=== PATIENT | female | born 1975 | race Caucasian/White ===

== ENCOUNTER 2017-06-26 08:00 | Inpatient (IN) | payer MEDICAID, OTHER ==
--- NOTE | 2017-06-26 09:07 | PD ---
HPI Chief Complaint pelvic pressure and contractions Travel History International Travel<30 Days: No Contact w/Intl Traveler<30Days: No History of Present Illness HPI 41 yo at 40/3 based second trimester us presents to OB triage due to pelvic pressure that started this morning. Pt stated she felt gush of fluid ( blood streaked) around 4am. Endorses contractions and movement. Pt stated last meal she had was at 7pm yesterday 06/25. Of note: there is a discrepancy on pt's LACHELLE because first US during this was done 03/20/17. Based on LMP: 09/24/16 LACHELLE: 07/02/17 and pt is 39/1 weeks gestation based LMP. Weeks Gestation: 40 Para: 2 : 5 : 1 History Past Medical History Medical History: Denies Significant Hx Obstetric History Obstetric History - 1 miscarriage - 1 ectopic 4 yrs ago - C/S x2 Past Surgical History Narrative Surgical -C/S x2 - L fallopian tube removal due to ectopic Family History Family History: Negative Social History Alcohol Use: No Tobacco Use: No Substance Abuse: No Allergies-Medications (Allergen,Severity, Reaction): Coded Allergies: No Known Allergies (Unverified , 06/26/17) Review of Systems Except as stated in HPI: all other systems reviewed are Neg Physical Exam Narrative GENERAL: Well-nourished, well-developed patient. SKIN: Warm and dry. HEAD: Normocephalic and atraumatic. EYES: No scleral icterus. No injection or drainage. ENT: No nasal drainage noted. Mucous membranes pink. Airway patent. NECK: Supple, trachea midline. No JVD. CARDIOVASCULAR: Regular rate and rhythm without murmurs, gallops, or rubs. RESPIRATORY: Breath sounds equal bilaterally. No accessory muscle use. BREASTS: Bilateral exam showed no masses , no retractions, no nipple discharge. ABDOMEN/GI: Abdomen soft, non-tender, bowel sounds present, no rebound, no guarding GENITOURINARY: External Genitalia: intact and normal in appearance Dilatation: 0-1cm Effacement: 50% Station: -3 Membranes: intact Uterine Contractions: present, every 3-6mins FHT's: Category: 1 Baseline: 130 Reactive: positive Variability: moderate Decels: none EXTREMITIES: No cyanosis or edema. BACK: Nontender without obvious deformity. No CVA tenderness. NEUROLOGICAL: Awake and alert. Motor and sensory grossly within normal limits. Five out of 5 muscle strength in all muscle groups. Normal speech. Data Data Vital Signs Reviewed: Yes MDM Medical Record Reviewed: Yes Plan 41 yo at 40/3 based on second trimester us presented to OB triage due to increased pelvic pressure and contractions. Plan to admit pt to be delivered via C/S today. 1.IUP at 40/3 -Continue routine OB Care -NST, reassuring -FHT, cat. 1 -amnisure neg but pt gestational age and frequent contractions and pelvic pressure 2. C- section -Pt VS are WNL, boubacar about every 3 mins with increased pelvic pressure -plan to deliver pt via today -Pt NPO since 7pm last night -ancef 2g will be given pre-op dw Dr. Hendrickson Diagnosis Diagnosis: Primary Impression: 40 weeks gestation of Ruled Out: 39 weeks gestation of Melquiades Cordero MD R1 Jun 26, 2017 09:07
[2017-06-26] MEDS ORDERED: LACTATED RINGER'S 1000 ML INJ 1,000 ML IV ONE ×2 (10:16→12:00)
[2017-06-26] MEDS ORDERED: LACTATED RINGER'S 1000 ML INJ 1,000 ML IV SCH (10:46)
--- NOTE | 2017-06-26 10:58 | HHI.HP ---
History & Physical H&P HPI HPI Chief Complaint pelvic pressure and contractions Travel History International Travel<30 Days: No Contact w/Intl Traveler<30Days: No History of Present Illness HPI 41 yo at 40/3 based second trimester us presents to OB triage due to pelvic pressure that started this morning. Pt stated she felt gush of fluid ( blood streaked) around 4am. Endorses contractions and movement. Pt stated last meal she had was at 7pm yesterday 06/25. Of note: there is a discrepancy on pt's LACEHLLE because first US during this was done 03/20/17. Based on LMP: 09/24/16 LACHELLE: 07/02/17 and pt is 39/1 weeks gestation based LMP. Weeks Gestation: 40 Para: 2 : 5 : 1 History (Limited) History Past Medical History Medical History: Denies Significant Hx Obstetric History Obstetric History - 1 miscarriage - 1 ectopic 4 yrs ago - C/S x2 Past Surgical History Narrative Surgical -C/S x2 - L fallopian tube removal due to ectopic Family History Family History: Negative Social History Alcohol Use: No Tobacco Use: No Substance Abuse: No Allergies-Medications Allergies-Medications (Allergen,Severity, Reaction): Coded Allergies: No Known Allergies (Unverified , 06/26/17) ROS Review of Systems Except as stated in HPI: all other systems reviewed are Neg Physical Exam Physical Exam Narrative GENERAL: Well-nourished, well-developed patient. SKIN: Warm and dry. HEAD: Normocephalic and atraumatic. EYES: No scleral icterus. No injection or drainage. ENT: No nasal drainage noted. Mucous membranes pink. Airway patent. NECK: Supple, trachea midline. No JVD. CARDIOVASCULAR: Regular rate and rhythm without murmurs, gallops, or rubs. RESPIRATORY: Breath sounds equal bilaterally. No accessory muscle use. BREASTS: Bilateral exam showed no masses , no retractions, no nipple discharge. ABDOMEN/GI: Abdomen soft, non-tender, bowel sounds present, no rebound, no guarding GENITOURINARY: External Genitalia: intact and normal in appearance Dilatation: 0-1cm Effacement: 50% Station: -3 Membranes: intact Uterine Contractions: present, every 3-6mins FHT's: Category: 1 Baseline: 130 Reactive: positive Variability: moderate Decels: none EXTREMITIES: No cyanosis or edema. BACK: Nontender without obvious deformity. No CVA tenderness. NEUROLOGICAL: Awake and alert. Motor and sensory grossly within normal limits. Five out of 5 muscle strength in all muscle groups. Normal speech. Data Data Data Vital Signs Reviewed: Yes MDM MDM Medical Record Reviewed: Yes Plan 41 yo at 40/3 based on second trimester us presented to OB triage due to increased pelvic pressure and contractions. Plan to admit pt to be delivered via C/S today. 1.IUP at 40/3 -Continue routine OB Care -NST, reassuring -FHT, cat. 1 -amnisure neg but pt gestational age and frequent contractions and pelvic pressure 2. C- section -Pt VS are WNL, boubacar about every 3 mins with increased pelvic pressure -plan to deliver pt via today -Pt NPO since 7pm last night -ancef 2g will be given pre-op dw Dr. Hendrickson Diagnosis Diagnosis: Primary Impression: 40 weeks gestation of Ruled Out: 39 weeks gestation of Melquiades Cordero MD R1 Jun 26, 2017 10:58
[2017-06-26] MEDS ORDERED: ceFAZolin 2 GM PREMIX 50 ML IV SCH (11:30)
[2017-06-26] MEDS ORDERED: MORPHINE SULFATE PF 5 MG/10 ML VIAL EPIDURAL ONE (12:00)
[2017-06-26] MEDS ORDERED: OXYTOCIN 10 UNIT/ML AMP IV ONE (12:00)
[2017-06-26] MEDS ORDERED: ePHEDrine/NS 25 MG/5 ML SYR IV ONE (12:00)
[2017-06-26] MEDS ORDERED: ONDANSETRON HCL 4 MG/2 ML VIAL IV PUSH ONE (12:00)
[2017-06-26] MEDS ORDERED: DEXAMETHASONE SOD PHOS 4 MG/ML VIAL IV ONE (12:00)
[2017-06-26] MEDS ORDERED: CITRIC ACID-SODIUM CITRATE LIQ 30 ML UDC PO SCH (12:00)
[2017-06-26 12:15] LABS: AUTOMATED NEUTROPHIL # 6.8 TH/MM3 (1.8-7.7); BASOPHIL % 0.4 % (0.0-2.0); EOSINOPHIL # 0.1 TH/MM3 (0-0.4); EOSINOPHIL % 0.8 % (0.0-4.0); HEMATOCRIT 34.1 % (35.0-46.0); HEMO FLAGS DIFF FINAL; LYMPH % 20.1 % (9.0-44.0); LYMPHOCYTE # 1.9 TH/MM3 (1.0-4.8); MEAN CELL VOLUME 75.2 FL (80.0-100.0); MEAN CORPUSCULAR HEMOGLOBIN 24.4 PG (27.0-34.0); MEAN CORPUSCULAR HGB CONC 32.5 % (32.0-36.0); MONO % 5.3 % (0.0-8.0); NEUT % 73.4 % (16.0-70.0); PLATELET COUNT 287 TH/MM3 (150-450); RED BLOOD COUNT 4.54 MIL/MM3 (4.00-5.30); RED CELL DISTRIBUTION WIDTH 16.7 % (11.6-17.2); WHITE BLOOD COUNT 9.3 TH/MM3 (4.0-11.0)
[2017-06-26 12:27] LABS: BACTERIA, URINE MOD /hpf; BLOOD, URINE SMALL (NEG); COMMENT (UR) CATH-CULTURE IND; CULTURE IF INDICATED CATH CULTURE IND; GLUCOSE,URINE TRACE mg/dL (NEG); KETONE, URINE NEG (NEG); MUCUS URINE FEW /lpf (OCC); NITRITE,URINE NEG (NEG); SQUAMOUS EPITHELIAL CELL URINE 2 /hpf (0-5); URINE COLOR YELLOW (YELLW/STRAW)
[2017-06-26] MEDS ORDERED: ONDANSETRON HCL 4 MG/2 ML VIAL IV PUSH PRN (15:15)
[2017-06-26] MEDS ORDERED: ZOLPIDEM TARTRATE 5 MG TAB PO PRN (15:15)
[2017-06-26] MEDS ORDERED: SODIUM CHLORIDE 0.9% FLUSH 10 ML FLUSH IV FLUSH PRN (15:15)
[2017-06-26] MEDS ORDERED: ACETAMINOPHEN 325 MG TAB PO PRN (15:15)
[2017-06-26] MEDS ORDERED: OXYTOCIN 30 UNITS-500ML PREMIX 500 ML IV ONE (15:15)
[2017-06-26] MEDS ORDERED: OXYTOCIN 30 UNITS-500ML PREMIX 500 ML ONE (16:54)
[2017-06-26 17:55] LABS: HEMATOCRIT 32.9 % (35.0-46.0); REVIEW FLAG FINAL
--- NOTE | 2017-06-26 19:15 | MP ---
cc: ELVIN HENDRICKSON MD DATE OF SURGERY 06/26/17 PREOPERATIVE DIAGNOSIS 1. Term previous caesarean section and early labor for repeat caesarean section. 2. Desires sterilization POSTOPERATIVE DIAGNOSIS 1. Term previous caesarean section and early labor for repeat caesarean section, macrosomia. 2. Desires sterilization, left tubal ligation done. OPERATION Repeat low transverse caesarean section, left tubal ligation. SURGEON Moises Hendrickson MD CLAM SHOVEL OPERATOR Dr. Gonzalez, [facility]. ANESTHESIA Spinal. PROCEDURE IN DETAIL The patient is a 41 year old , G5, P2 at 40 1/2 weeks who has a previous caesarean section boubacar this morning with pain. Cervix is 1 cm. The patient desires repeat caesarean section and left tubal ligation. She had a right tube removed due to ectopic in the past. The patient was taken to the operating room, placed in supine position on the operating room table. Adequate spinal anesthesia was administered. She was prepped and draped for abdominal surgery. A previous Pfannenstiel incision was excised out and cast away. The incision was carried to the fascia sharply and the fascia dissected laterally and then off the rectus muscle. The peritoneal cavity was entered sharply at that time. The incision was extended superior and inferiorly sharply. The bladder blade was used to hold the lower edge of incision and the vesiperitoneum was __ off the lower uterine segment and placed In the bladder blade. A transverse hysterotomy was made and extended bluntly bilaterally. Clear fluid noted at that time. A male was delivered at 2:27 p.m. Apgars 9 and 9. Weight 4870 grams, 10 lbs 12 oz. There were no complications to delivery. Cord blood obtained. Placenta manually extracted. Baby handed to awaiting nursery staff. The hysterotomy closed in running layer of 0 chromic followed by imbricating suture of same. Hemostasis was achieved. The left fallopian tube was isolated out and elevated. A hemostat passed through the mesosalpinx. Two free ties pulled through that window in the mesosalpinx and the tube was tied before and after. Intervening segment cut. This was sent to pathology. The right tube was absent. The uterus was elevated. Blunt dissection to cul-de-sac and gutters. Uterus was replaced in peritoneal cavity. The parieto-peritoneum was closed in running layer of 2-0 Vicryl. The muscle approximated with two stick ties of chromic. The fascia closed in a running layer of 0 Vicryl. The subcutaneous tissue reapproximated using 3-0 plain catgut suture in a running fashion. Skin closed with running subcuticular stitch of 3-0 Monocryl. The patient has a very large pannus and the incision would be under this pannus so we used the optifoam dressing that stays on a week and was placed over the incision. This will be removed in a week, sooner if it gets saturated. The estimated blood loss was 500 mL. There were no complications. Sponge count correct times two. The patient was taken to recovery in stable condition. MD LINDSEY Maradiaga/ /3:38 PM /6:52 PM
[2017-06-26] MEDS: SODIUM CHLORIDE 0.9% FLUSH 10 ML FLUSH IV FLUSH SCH (21:00)
[2017-06-27] MEDS: LACTATED RINGER'S 1000 ML INJ 1,000 ML IV SCH ×2 (00:14→06:15)
[2017-06-27] MEDS ORDERED: OXYTOCIN 30 UNITS-500ML PREMIX 500 ML IV PRN (01:15)
[2017-06-27] MEDS: SIMETHICONE 80 MG CHEWABLE TAB PO PRN ×2 (02:48→14:13)
[2017-06-27 06:57] LABS: AUTOMATED NEUTROPHIL # 9.4 TH/MM3 (1.8-7.7); BASOPHIL % 0.1 % (0.0-2.0); HEMATOCRIT 29.1 % (35.0-46.0); HEMO FLAGS DIFF FINAL; LYMPH % 11.3 % (9.0-44.0); LYMPHOCYTE # 1.3 TH/MM3 (1.0-4.8); MEAN CELL VOLUME 75.9 FL (80.0-100.0); MEAN CORPUSCULAR HEMOGLOBIN 24.3 PG (27.0-34.0); NEUT % 82.6 % (16.0-70.0); PLATELET COUNT 266 TH/MM3 (150-450); RED BLOOD COUNT 3.84 MIL/MM3 (4.00-5.30); RED CELL DISTRIBUTION WIDTH 16.8 % (11.6-17.2); WHITE BLOOD COUNT 11.4 TH/MM3 (4.0-11.0)
--- NOTE | 2017-06-27 08:11 | HHI.OB ---
Subjective Post Operative Day: 1 Remarks Pt seen and examined this morning. Postoperative day # 1 AFVSS overnight. Incision and draining. Decreased lochia. Denies dysuria. No breast tenderness. She is feeding the baby via breast and bottle. Appetite good. No nausea or vomiting. Patient has not yet had a bowel movement or passed bowel gas. Ambulating well. Denies calf pain or shortness of breath. Otherwise, she is doing well this morning and has no other concerns. Objective Result Diagram: 06/27/17 0612 Objective Remarks GENERAL: Well-nourished, well-developed patient. CARDIOVASCULAR: Regular rate and rhythm without murmurs, gallops, or rubs. RESPIRATORY: Breath sounds equal bilaterally. No accessory muscle use. ABDOMEN/GI: Abdomen soft, non-tender, bowel sounds present. Incision: Clean, dry and intact. Fundus: Firm, non-tender at umbilicus. GENITOURINARY: Light to moderate bleeding. EXTREMITIES: No cyanosis or edema, non-tender, without signs of DVT. Medications and IVs Current Medications Medications (Trade) Dose Ordered Sig/Prakash Route Start Time Stop Time Status Last Admin Cefazolin Sodium/ Dextrose 50 ml @ 100 mls/hr LETTUCE CUTTER IV 06/26/17 11:30 06/30/17 11:29 06/26/17 13:11 (Bicitra Liq) 30 ml LETTUCE CUTTER PO 06/26/17 12:00 06/30/17 11:59 06/26/17 13:10 Lactated Ringer's 1,000 ml @ 100 mls/hr Q10H IV 06/26/17 20:15 06/27/17 16:14 06/27/17 00:14 Oxytocin 500 ml @ 100 mls/hr UNSCH X1 PRN IV 06/27/17 01:15 06/28/17 01:14 (NS Flush) 2 ml BID IV FLUSH 06/26/17 21:00 (NS Flush) 2 ml UNSCH PRN IV FLUSH 06/26/17 15:15 (Mylicon Chew) 80 mg QID PRN PO 06/26/17 15:15 06/27/17 02:48 (Tylenol) 650 mg Q6H PRN PO 06/26/17 15:15 (Motrin) 600 mg Q6H PRN PO 06/26/17 15:15 (Percocet 5-325 Mg) 1 tab Q4H PRN PO 06/26/17 15:15 (Percocet 5-325 Mg) 2 tab Q4H PRN PO 06/26/17 15:15 (Cindy-Colace) 2 tab Q12H PRN PO 06/26/17 15:15 (Ambien) 5 mg HS PRN PO 06/26/17 15:15 (M-M-R Ii Inj) 0.5 ml ONCE ONCE SQ 06/27/17 16:00 06/27/17 16:01 (Boostrix Inj) 0.5 ml ONCE ONCE IM 06/27/17 16:00 06/27/17 16:01 (Zofran Inj) 4 mg Q6H PRN IV PUSH 06/26/17 15:15 06/26/17 23:55 Cefazolin Sodium 1000 mg/Sodium Chloride 100 ml @ 200 mls/hr Q8H IV 06/27/17 00:30 06/27/17 08:59 06/27/17 00:14 Assessment/Plan Problem List: (1) delivery delivered ICD Codes: O82 - Encounter for delivery without indication Status: Acute Assessment and Plan 41 y/o female who is postoperative day # 1 s/p . -Continue routine care. -Percocet and Motrin PRN pain. -Encouraged OOB. Advised pelvic rest for 6 wks. Will need follow-up appointment in 1 week for incision check. -Re: ctrl, she would like to discuss her options at her follow-up appointment. -Anticipate discharge in 1-2 days. gavin Hendrickson MD Discharge Planning 1-2 days Mario Zuniga MD R2 Jun 27, 2017 08:11
[2017-06-27] MEDS: SODIUM CHLORIDE 0.9% FLUSH 10 ML FLUSH IV FLUSH SCH ×3 (09:00→20:54)
[2017-06-27 11:51] VITALS: BP 114/66; PULSE 90; RESP 18; TEMP 98.8
[2017-06-27] MEDS: IBUPROFEN 600 MG TAB PO PRN ×2 (14:13→20:50)
[2017-06-27] MEDS: oxyCODONE/ACETAMINOPHEN 5 MG/325 MG TAB PO PRN ×2 (14:13→18:53)
[2017-06-27] MEDS ORDERED: MEASLES, MUMPS, RUBELLA VACCINE 0.5 ML VIAL SQ ONE (16:00)
[2017-06-27] MEDS ORDERED: DIPHTH/TETANUS/ACEL PERTUSSIS (BOOSTER) 0.5 ML VIAL/PFS IM ONE (16:00)
[2017-06-27 16:20] VITALS: BP 138/81; PULSE 100; RESP 20; TEMP 97.6
[2017-06-27] MEDS: DOCUSATE SODIUM 50 MG/SENNA 8.6 MG TAB PO PRN (20:49)
[2017-06-28] MEDS ORDERED: OXYC1TAB63 PO (09:30)
[2017-06-28] MEDS ORDERED: SENN1TAB PO (09:30)
[2017-06-28] MEDS ORDERED: IBUP-232 PO (09:30)
--- NOTE | 2017-06-28 09:30 | HHI.DCPOC ---
Discharge Care Plan Diagnosis: (1) delivery delivered Report Symptoms to Your Doctor -Temperature above 100.5 degrees -Redness, of incision or excessive or foul smelling drainage -Unusual pain or calf pain -Increased vaginal bleeding -Painful or difficulty urinating -Feelings of extreme sadness or anxiety after 2 weeks Goals to Promote Your Health * To prevent worsening of your condition and complications * To maintain your health at the optimal level Directions to Meet Your Goals Take your medications as prescribed Follow your dietary instruction Follow activity as directed Ensure plenty of rest for recovery Drink fluids for hydration Keep your appointments as scheduled Take your immunizations and boosters as scheduled If your symptoms worsen call your PCP, if no PCP go to Urgent Care Center or Emergency Room Smoking is Dangerous to Your Health. Avoid second hand smoke Call the 24-hour crisis hotline for domestic abuse at Mario Zuniga MD R2 Jun 28, 2017 09:30
[2017-06-28] MEDS: SIMETHICONE 80 MG CHEWABLE TAB PO PRN (09:44)
[2017-06-28] MEDS: DOCUSATE SODIUM 50 MG/SENNA 8.6 MG TAB PO PRN ×2 (09:44→20:43)
[2017-06-28] MEDS: IBUPROFEN 600 MG TAB PO PRN ×2 (09:44→20:42)
--- NOTE | 2017-06-28 10:28 | HHI.OB ---
Subjective Post Operative Day: 2 Remarks Pt seen and examined this morning. Postoperative day # 2 AFVSS overnight. Incision not draining. Decreased lochia. Denies dysuria. No breast tenderness. She is feeding the baby via breast. Appetite good. No nausea or vomiting. Patient has had a bowel movement and continues to pass bowel gas. Ambulating well. Denies calf pain or shortness of breath. Otherwise, she is doing well this morning and has no other concerns. Objective Vitals/I&O Vital Signs Date Time Temp Pulse Resp B/P (MAP) Pulse Ox O2 Delivery O2 Flow Rate FiO2 06/27/17 16:20 97.6 100 20 138/81 (100) 06/27/17 11:51 98.8 90 18 114/66 (82) Intake & Output 06/28/17 06/28/17 07:00 19:00 Intake Total 2150 ml Balance 2150 ml Intake IV Total 2150 ml Result Diagram: 06/27/17 06 Objective Remarks GENERAL: Well-nourished, well-developed patient. CARDIOVASCULAR: Regular rate and rhythm without murmurs, gallops, or rubs. RESPIRATORY: Breath sounds equal bilaterally. No accessory muscle use. ABDOMEN/GI: Abdomen soft, non-tender, bowel sounds present. Incision: Clean, dry and intact. Fundus: Firm, non-tender at umbilicus. GENITOURINARY: Light to moderate bleeding. EXTREMITIES: No cyanosis or edema, non-tender, without signs of DVT. Medications and IVs Current Medications Medications (Trade) Dose Ordered Sig/Prakash Route Start Time Stop Time Status Last Admin Cefazolin Sodium/ Dextrose 50 ml @ 100 mls/hr EDUCATION COUNSELOR IV 06/26/17 11:30 06/30/17 11:29 06/26/17 13:11 (Bicitra Liq) 30 ml EDUCATION COUNSELOR PO 06/26/17 12:00 06/30/17 11:59 06/26/17 13:10 (NS Flush) 2 ml BID IV FLUSH 06/26/17 21:00 06/27/17 20:54 (NS Flush) 2 ml UNSCH PRN IV FLUSH 06/26/17 15:15 (Mylicon Chew) 80 mg QID PRN PO 06/26/17 15:15 06/28/17 09:44 (Tylenol) 650 mg Q6H PRN PO 06/26/17 15:15 (Motrin) 600 mg Q6H PRN PO 06/26/17 15:15 06/28/17 09:44 (Percocet 5-325 Mg) 1 tab Q4H PRN PO 06/26/17 15:15 06/27/17 18:53 (Percocet 5-325 Mg) 2 tab Q4H PRN PO 06/26/17 15:15 (Cindy-Colace) 2 tab Q12H PRN PO 06/26/17 15:15 06/28/17 09:44 (Ambien) 5 mg HS PRN PO 06/26/17 15:15 (Zofran Inj) 4 mg Q6H PRN IV PUSH 06/26/17 15:15 06/26/17 23:55 Assessment/Plan Problem List: (1) delivery delivered ICD Codes: O82 - Encounter for delivery without indication Status: Acute Assessment and Plan 41 y/o female who is postoperative day # 2 s/p . -Continue routine care. -Percocet and Motrin PRN pain. -Encouraged OOB. Advised pelvic rest for 6 wks. Will need follow-up appointment in 1 week for incision check. -Re: ctrl, she would like to discuss her options at her follow-up appointment. -Anticipate discharge today with baby. gavin Leon MD Update: Patient has changed her mind, and would like to stay and be discharged home tomorrow. Discharge Planning Today with baby Mario Zuniga MD R2 Jun 28, 2017 10:28
[2017-06-28] MEDS: SODIUM CHLORIDE 0.9% FLUSH 10 ML FLUSH IV FLUSH SCH ×2 (20:43→21:00)
[2017-06-28] MEDS: oxyCODONE/ACETAMINOPHEN 5 MG/325 MG TAB PO PRN (20:43)
[2017-06-28] MEDS ORDERED: WITCH HAZEL 50%/GLYCERIN 12.5% 40 PAD JAR TOPICAL PRN (23:15)
[2017-06-28] MEDS ORDERED: PETROLEUM/SHARK LIVER OIL/PHENYLEPHRINE 60 GM TUBE RECTAL PRN (23:15)
[2017-06-29] MEDS: IBUPROFEN 600 MG TAB PO PRN ×2 (05:50→11:50)
[2017-06-29] MEDS: oxyCODONE/ACETAMINOPHEN 5 MG/325 MG TAB PO PRN ×2 (05:50→11:50)
--- NOTE | 2017-06-29 09:47 | HHI.OB ---
Subjective Post Day: 3 Remarks day # 3. AFVSS overnight. Pain is minimal. Decreased lochia. Denies dysuria. No breast tenderness. She is feeding the baby via rest. Appetite good. No nausea or vomiting. Passing flatus. No bowel movement. Ambulating well. Denies calf pain, shortness of breath, or cough. Otherwise, she is doing well this morning and has no other complaints. Objective Vitals/I&O Vital Signs Date Time Temp Pulse Resp B/P (MAP) Pulse Ox O2 Delivery O2 Flow Rate FiO2 06/27/17 16:20 97.6 100 20 138/81 (100) Objective Remarks GENERAL: Well-nourished, well-developed patient. CARDIOVASCULAR: Regular rate and rhythm without murmurs, gallops, or rubs. RESPIRATORY: Breath sounds equal bilaterally. No accessory muscle use. ABDOMEN/GI: Abdomen soft, non-tender. Fundus: Firm, non-tender at umbilicus. GENITOURINARY: Light to moderate bleeding. EXTREMITIES: No cyanosis or edema, non-tender, without signs of DVT. Medications and IVs Current Medications Medications (Trade) Dose Ordered Sig/Prakash Route Start Time Stop Time Status Last Admin Cefazolin Sodium/ Dextrose 50 ml @ 100 mls/hr APPLICATIONS PROJECT MANAGER IV 06/26/17 11:30 06/30/17 11:29 06/26/17 13:11 (Bicitra Liq) 30 ml APPLICATIONS PROJECT MANAGER PO 06/26/17 12:00 06/30/17 11:59 06/26/17 13:10 (NS Flush) 2 ml BID IV FLUSH 06/26/17 21:00 06/28/17 20:43 (NS Flush) 2 ml UNSCH PRN IV FLUSH 06/26/17 15:15 (Mylicon Chew) 80 mg QID PRN PO 06/26/17 15:15 06/28/17 09:44 (Tylenol) 650 mg Q6H PRN PO 06/26/17 15:15 (Motrin) 600 mg Q6H PRN PO 06/26/17 15:15 06/29/17 05:50 (Percocet 5-325 Mg) 1 tab Q4H PRN PO 06/26/17 15:15 06/27/17 18:53 (Percocet 5-325 Mg) 2 tab Q4H PRN PO 06/26/17 15:15 06/29/17 05:50 (Cindy-Colace) 2 tab Q12H PRN PO 06/26/17 15:15 06/28/17 20:43 (Ambien) 5 mg HS PRN PO 06/26/17 15:15 06/29/17 01:42 (Zofran Inj) 4 mg Q6H PRN IV PUSH 06/26/17 15:15 06/26/17 23:55 (Preparation H Oint) 1 applic UNSCH PRN RECTAL 06/28/17 23:15 (Tucks Pads) 1 applic UNSCH PRN TOPICAL 06/28/17 23:15 Assessment/Plan Problem List: (1) delivery delivered ICD Codes: O82 - Encounter for delivery without indication Status: Acute Assessment and Plan 41 y/o female who is postoperative day # 3 s/p . -Continue routine care. -Percocet and Motrin PRN pain. -Encouraged OOB. Advised pelvic rest for 6 wks. Will need follow-up appointment in 1 week for incision check. -Re: ctrl, she would like to discuss her options at her follow-up appointment. -Anticipate discharge today with baby. dw Dr. Emeka MD Discharge Planning Today with baby Jolanta Erazo MD R1 Jun 29, 2017 09:47
[2017-06-29] MEDS: DOCUSATE SODIUM 50 MG/SENNA 8.6 MG TAB PO PRN (11:49)
[2017-06-29] MEDS ORDERED: MEASLES, MUMPS, RUBELLA VACCINE 0.5 ML VIAL SQ ONE (14:00)
== END 2017-06-29 16:32 | disposition home or self-care (01) | DRG 766 ==
LOC: HOBED 08:00 → H2EB 10:37 → H1EA 18:28
PROVIDERS: ADMIT Obstetrics & Gynecology Maternal & Fetal Medicine; ATTEND Obstetrics & Gynecology Maternal & Fetal Medicine
PROC: 10D00Z1 Extraction of Products of Conception, Low, Open Approach (ICD-10-PCS; principal; 2017-06-26)
PROC: 0UB60ZZ Excision of Left Fallopian Tube, Open Approach (ICD-10-PCS; 2017-06-26)
DX: O34.219 Maternal care for unspecified type scar from previous cesarean delivery (principal); O26.893 Other specified pregnancy related conditions, third trimester; E65 Localized adiposity; Z30.2 Encounter for sterilization; Z90.79 Acquired absence of other genital organ(s); Z3A.40 40 weeks gestation of pregnancy; Z37.0 Single live birth
CPT/HCPCS: 59025; 81001; 84112; 85014; 85018; 85025; 86850; 86900; 86901; 87086; 88302; 90707; 90715; 99285; J0690; J1100; J2274; J2405; J2590; J7120